=== PATIENT | male | born 1975 | race Caucasian/White ===

== ENCOUNTER 2018-05-30 07:09 | Day surgery (SDC) | payer OTHER ==
[2018-05-28 15:31] VITALS: BMI 37.1
[2018-05-30] MEDS ORDERED: TAMSULOSIN HCL 0.4 MG CAP.ER.24H (FP) ONE (07:32)
[2018-05-30] MEDS ORDERED: MIDAZOLAM HCL 2 MG/2 ML SINGLE DOSE VIAL ONE ×3 (08:20→09:48)
[2018-05-30] MEDS ORDERED: BUPIVACAINE HCL/PF 0.25% (2.5MG/ML) 10 ML VIAL ONE ×2 (08:21→08:50)
[2018-05-30] MEDS ORDERED: BUPIVACAINE HCL/PF 0.5% (5MG/ML) 10 ML VIAL ONE (08:21)
[2018-05-30] MEDS ORDERED: PROPOFOL 20 ML ONE (09:54)
[2018-05-30] MEDS ORDERED: ROCURONIUM BROMIDE 50 MG/5 ML VIAL ONE (10:14)
[2018-05-30] MEDS ORDERED: NEOSTIGMINE METHYLSULFATE 0.5 MG/ML - 10 ML MDV ONE (11:14)
[2018-05-30] MEDS ORDERED: ONDANSETRON 4 MG/2 ML VIAL IVPUSH PRN (11:46)
[2018-05-30] MEDS ORDERED: LACTATED RINGERS SOLUTION 1,000 ML IV SCH (12:00)
--- NOTE | 2018-05-30 12:39 | OP ---
DATE OF OPERATION: 05/30/2018 PREOPERATIVE DIAGNOSIS: Left inguinal hernia, attenuation right groin. POSTOPERATIVE DIAGNOSIS: Indirect left inguinal hernia/direct right inguinal hernia. PROCEDURE: Bilateral laparoscopic inguinal hernia repair with mesh. OPERATING SURGEON: Vicki Gooden MD RESIDENTIAL HOUSEKEEPER: Anand Zaragoza MD ANESTHESIA: Margarita Paulino MD (general) HISTORY: A 43-year-old man who presents with an obvious symptomatic reducible left inguinal hernia. Patient with attenuation of the right groin musculature clinically with no obvious hernia. At the time of surgery found to have a right direct component. Indications, alternatives, and possible complications of the intended procedure were reviewed. Consent obtained. PROCEDURE: With the patient in the supine position, and after general anesthesia, the abdomen was prepped and draped in sterile fashion using chlorhexidine. A small incision was made just beneath the umbilicus and off to the right of the midline. The subcutaneous tissues were . The anterior rectus sheath was incised. The preperitoneal space was identified. A dissecting balloon was advanced into the preperitoneal space toward the pubis. The balloon was insufflated, creating a dissection. The balloon was removed leaving structural collar in place. The preperitoneal space was insufflated to an adequate pressure and volume using CO2 gas. The camera lens was passed through this port , and the preperitoneal space visualized. Under direct vision, a 10- and 11-mm port was placed in the midline midway between the umbilicus and the pubis. The operating instruments were passed through this port. Exploration of the preperitoneal space initially was difficult as the left side had not become totally dissected. In order to facilitate and complete the dissection, a Pediport was placed on the right, and the preperitoneal space was completed on the left side. The anatomy was then identified. There was an obvious, rather large, indirect component on the left with some attenuation of the direct space but with no obvious direct or femoral component. On the right side, there was no clinically significant indirect component. There was a small direct component noted. There was no right femoral component. First directing our attention to the left side, the cord was skeletonized of its cremasteric fibers. Cord anatomy was identified. The sac and cord lipoma were reduced. The left side was then repaired using a piece of 4 x 6 inch Versatex mesh. The mesh was keyholed and placed into the preperitoneal space. It was tacked in place with counter palpation and AbsorbaTack. The mesh was fixed superiorly to the iliopubic tract. The mesh was fixed anterior to the anterior abdominal wall. The mesh was fixed inferior to the Maikel ligament and the pubic tubercle. The keyhole portion of the mesh was wrapped around the cord and tacked in place reconstructing internal ring. Now directing our attention to the contralateral side, the cord again was skeletonized of its cremasteric fibers, and again no clinically significant indirect component noted. The right side was repaired with the same mesh and technique as described above for the left. At the completion of the repair, the mesh was noted to overlap in the midline. Adequate hemostasis was ensured. The low midline and Pediport were removed and no bleeding identified at these port sites. Ultimately the camera lens and umbilical port and column were removed, and the gas was allowed to escape from the preperitoneal space. The fascia at the umbilical and low midline sites were then closed using interrupted 0-Vicryl sutures. All skin wounds were closed using subcuticular 4-0 Biosyn sutures. Dermabond applied at each of the wound sites. Needle and instrument counts were correct. ESTIMATED BLOOD LOSS: Minimal. SPECIMEN: None. IMPLANT: Mesh x2. Patient tolerated the procedure. Procedure was terminated. VICKI GOODEN M.D. [id number] MTDD
[2018-05-30 15:59] VITALS: PULSE 90
[2018-05-30 17:24] VITALS: BP 131/75; TEMP 98
== END 2018-05-30 15:35 | disposition home or self-care (01) ==
LOC: JASU-SURG 07:09
PROVIDERS: ATTEND Surgery
PROC: 0YUA4JZ Supplement Bilateral Inguinal Region with Synthetic Substitute, Percutaneous Endoscopic Approach (ICD-10-PCS; principal; 2018-05-30 09:00)
DX: K40.20 Bilateral inguinal hernia, without obstruction or gangrene, not specified as recurrent (principal)
CPT/HCPCS: 94010; 94760